=== PATIENT | female | born 1995 | race Caucasian/White ===

== ENCOUNTER 2018-05-24 23:38 | Emergency (ER) | payer SELFPAY ==
[2018-05-25 00:18] VITALS: BP 106/70
--- NOTE | 2018-05-25 00:51 | ER Document Report ---
HPI - HPI Pain Level: Denies Notes: Patient is a 22-year-old otherwise healthy female who presents with multiple family members all of which have a similar rash. Patient describes it as a very itchy rash, states it has been there for 1 week. Patient states she thinks it might be sand fleas as she states there are multiple of those in her house. - REPRODUCTIVE Reproductive: REPORTS: : Past Medical History - General Information source: Patient - Social History Smoking Status: Never Smoker Chew tobacco use (# tins/day): No Drug Abuse: None Family History: Reviewed & Not Pertinent Patient has suicidal ideation: No Patient has homicidal ideation: No - Medical History Medical History: Negative Renal/ Medical History: Denies: Hx Peritoneal Dialysis Surgical Hx: Negative - Immunizations Hx Diphtheria, Pertussis, Tetanus Vaccination: Yes - received this Vertical Provider Document - CONSTITUTIONAL Notes: PHYSICAL EXAMINATION: GENERAL: Well-appearing, well-nourished and in no acute distress. HEAD: Atraumatic, normocephalic. EYES: Pupils equal round extraocular movements intact, conjunctiva are normal. ENT: Nares patent NECK: Normal range of motion LUNGS: No respiratory distress Musculoskeletal: Normal range of motion NEUROLOGICAL: Normal speech, normal gait. PSYCH: Normal mood, normal affect. SKIN: Warm, Dry, normal turgor, small erythematous papules scattered on multiple areas of patient's body specifically to her bilateral arms and buttocks , a few are linear with multiple small papules in a line, consistent with scabies. - INFECTION CONTROL TRAVEL OUTSIDE OF THE [place] IN LAST 30 DAYS: No Course - Re-evaluation Re-evalutation: Physical examination is consistent with scabies. - Vital Signs Vital signs: Temp Pulse Resp BP Pulse Ox 97.8 F 65 18 106/70 100 05/25/18 00:15 05/25/18 00:15 05/25/18 00:15 05/25/18 00:15 05/25/18 00:15 Discharge - Discharge Clinical Impression: Scabies Condition: Stable Disposition: HOME, SELF-CARE Additional Instructions: Scabies Your exam suggests the presence of scabies, which are microscopic parasites of the skin. These mites miya through the skin, causing severe itching. The mite can be spread to other persons by skin contact. All clothing, towels, and bedding should be washed in very hot water, set aside for a week, then washed again. You should apply scabies-killing lotion from the neck down, then wash it off after 12 hours. You may need medication for itching, as the itch persists for many days after the mites have been killed. All family members and close personal contacts should be examined. Repeat treatment may be necessary if the infestation is not eliminated with a single treatment. Call the doctor if you develop increasing swelling and redness, red streaks , tender lumps, fever, or drainage from a skin sore. Prescriptions: Permethrin 60 gm TP NOW #120 gm Forms: Return to Work Referrals: IDANIA CALDERÓN DO [ACTIVE STAFF] - Follow up as needed
== END 2018-05-25 01:11 | disposition home or self-care (01) ==
LOC: ER 23:38
DX: O98.819 Other maternal infectious and parasitic diseases complicating pregnancy, unspecified trimester (principal); B86 Scabies; Z3A.00 Weeks of gestation of pregnancy not specified
CPT/HCPCS: 99282

== ENCOUNTER 2018-07-30 23:05 | Emergency (ER) | payer SELFPAY | END 2018-07-31 00:30 | disposition left against medical advice (07) | LOC: ER 23:05 | DX: Z53.21 Procedure and treatment not carried out due to patient leaving prior to being seen by health care provider (principal) ==